=== PATIENT | male | born 1975 | race Caucasian/White ===

== ENCOUNTER 2018-01-16 07:49 | Day surgery (SDC) | payer BC, MEDICAID ==
[~2018-01-16 07:49] MED LIST: Bupivacaine 0.25% 30 ML SDV ONE; Lactated Ringers 1,000 ML IV SCH; Lidocaine 1%/Sod Bicarbonate in NS 8.4% 1 ML Syringe IDERM PRN; Sodium Chloride 0.9% 10 ML Syringe FLUSH PRN; Triamcinolone Acetonide 40 MG/ML 1 ML MDV ONE
[2018-01-16] MEDS ORDERED: Lidocaine 1% 30 ML SDV ONE (08:31)
--- NOTE | 2018-01-16 08:46 | PCM.PREANE ---
Preanesthetic Assessment - Anesthesia/Transfusion/Family Hx Anesthesia History: Prior Anesthesia Without Reaction Family History of Anesthesia Reaction: No - Review of Systems General: No Symptoms Pulmonary: No Symptoms Cardiovascular: No Symptoms Gastrointestinal: No Symptoms Neurological: No Symptoms Other: Reports: Neck Pain (Not a constant pain. Comes and goes. ) - Physical Assessment NPO Status Date: 01/15/18 NPO Status Time: 18:30 O2 Sat by Pulse Oximetry: 99 Respiratory Rate: 16 Vital Signs: Last Vital Signs Temp 36.6 C 01/16/18 07:55 Pulse 65 01/16/18 07:55 Resp 16 01/16/18 07:55 BP 147/101 H 01/16/18 07:55 Pulse Ox 99 01/16/18 07:55 Height: 1.78 m Weight: 92.079 kg ASA Class: 2 Mental Status: Alert & Oriented x3 Airway Class: Mallampati = 1 Dentition: Reports: Normal Dentition Thyro-Mental Finger Breadths: 3 Mouth Opening Finger Breadths: 3 ROM/Head Extension: Full Lungs: Clear to Auscultation, Normal Respiratory Effort Cardiovascular: Regular Rate, Regular Rhythm - Lab Values: Laboratory Last Values MRSA (PCR) Negative 12/31/17 12:10 - Allergies Allergies/Adverse Reactions: Allergies Allergy/AdvReac Type Severity Reaction Status Date / Time No Known Allergies Allergy Verified 01/15/18 15:50 - Acknowledgements Anesthesia Type Planned: MAC Pt an Appropriate Candidate for the Planned Anesthesia: Yes Alternatives and Risks of Anesthesia Discussed w Pt/Guardian: Yes Pt/Guardian Understands and Agrees with Anesthesia Plan: Yes PreAnesthesia Questionnaire HEENT History: Reports: Other (See Below) Other HEENT History: strep pharyngitis, tonsillitis, uvulitis Cardiovascular History: Reports: High Cholesterol, Hypertension Respiratory History: Reports: None Gastrointestinal History: Reports: None Genitourinary History: Reports: Other (See Below) Other Genitourinary History: hematuria 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 Musculoskeletal History: Reports: Other (See Below) Other Musculoskeletal History: bilateral carpal tunnel syndrome, hand numbness, lateral epicondylitis, left hip pain, neck pain,golfer's elbow Neurological History: Reports: Other (See Below) Other Neuro History: cervical paraspinal muscle spasm Psychiatric History: Reports: None Endocrine/Metabolic History: Reports: None Hematologic History: Reports: None Immunologic History: Reports: None Oncologic (Cancer) History: Reports: None Dermatologic History: Reports: None - Past Surgical History Cardiovascular Surgical History: Reports: None Respiratory Surgical History: Reports: None GI Surgical History: Reports: Appendectomy Female Surgical History: Reports: None Male Surgical History: Reports: None Endocrine Surgical History: Reports: None Neurological Surgical History: Reports: None Musculoskeletal Surgical History: Reports: Other (See Below) Other Musculoskeletal Surgeries/Procedures:: foot surgery, right wrist surgery Oncologic Surgical History: Reports: None Dermatological Surgical History: Reports: None - SUBSTANCE USE Smoking Status *Q: Current Every Day Smoker Tobacco Use Within Last Twelve Months: Cigarettes, Snuff/Dip Recreational Drug Use History: No - HOME MEDS Home Medications: Home Meds Fish Oil/Innis-3 Fatty Acids [Fish Oil 1,000 MG] 1 gm PO DAILY 01/15/18 [History ] Multivitamin [Poly-Vitamin] 1 tab PO DAILY 01/15/18 [History] Omeprazole 20 mg PO DAILY 01/15/18 [History] Acetaminophen/HYDROcodone [[place] 325-5 MG] 1 - 2 tab PO Q6H PRN #40 tablet 01/16 [Rx] - CURRENT (IN HOUSE) MEDS Current Meds: Current Medications Lactated Ringer's (Ringers, Lactated) 1,000 mls @ 125 mls/hr IV ASDIRECTED REG Stop: 01/16/18 23:00 Last Admin: 01/16/18 08:05 Dose: 125 mls/hr Lidocaine/Sodium Bicarbonate (Buffered Lidocaine 1% In Ns 8.4%) 0.25 ml IDERM ONETIME PRN PRN Reason: Prior to IV Start Stop: 01/16/18 18:00 Last Admin: 01/16/18 08:05 Dose: 0.25 ml Sodium Chloride (Saline Flush) 10 ml FLUSH ASDIRECTED PRN PRN Reason: Keep Vein Open Stop: 01/16/18 18:00 Discontinued Medications Bupivacaine HCl (Marcaine 0.25%) Confirm Administered Dose 30 ml .ROUTE .STK- MED ONE Stop: 01/16/18 07:49 Triamcinolone Acetonide (Kenalog-40) Confirm Administered Dose 80 mg .ROUTE .STK -MED ONE Stop: 01/16/18 07:49
[2018-01-16] MEDS ORDERED: Ketamine 500 mg/10 ML MDV ONE (09:10)
[2018-01-16] MEDS ORDERED: Lidocaine 1% 4 ML ONE (09:10)
[2018-01-16] MEDS ORDERED: fentaNYL 100 MCG/2 ML SDV ONE (09:10)
[2018-01-16] MEDS ORDERED: Propofol 200 MG/20 ML SDV ONE ×2 (09:10→10:21)
[2018-01-16] MEDS ORDERED: Midazolam 1 MG/ML 2 ML SDV ONE (09:10)
[2018-01-16] MEDS ORDERED: HYDROmorphone 1 MG/ML Syringe ONE (10:13)
[2018-01-16] MEDS ORDERED: Lactated Ringers 1,000 ML ONE (10:21)
[2018-01-16] MEDS ORDERED: diphenhydrAMINE 50 MG/ML SDV ONE (10:23)
[2018-01-16] MEDS ORDERED: Dexamethasone 4 MG/ML 5 ML MDV ONE (10:23)
[2018-01-16] MEDS ORDERED: Ketorolac 30 MG/ML SDV ONE (10:44)
--- NOTE | 2018-01-16 12:16 | PCM48HPAN ---
Post Anesthesia Note - EVALUATION WITHIN 48HRS OF ANESTHETIC Vital Signs in Normal Range: Yes Patient Participated in Evaluation: Yes Respiratory Function Stable: Yes Airway Patent: Yes Cardiovascular Function Stable: Yes Hydration Status Stable: Yes Pain Control Satisfactory: Yes Nausea and Vomiting Control Satisfactory: Yes Mental Status Recovered: Yes Pulse Rate: 67 SaO2: 98 Resp Rate: 14 Temperature: 97.5 C Blood Pressure: 154/107 Pulse Rate: 67
--- NOTE | 2018-01-23 09:25 | PCM.OPNOTE ---
- General Post-Op/Procedure Note Date of Surgery/Procedure: 01/16/18 Operative Procedure(s): bilateral carpal tunnel release with bilateral lateral epicondylar injections Pre Op Diagnosis: bilateral median nerve compression neuropathy and bilateral elbow lateral epicondylitis Post-Op Diagnosis: Same Anesthesia Technique: Local, MAC Primary Surgeon: Valdemar Adrian Anesthesia Provider: Anabell Cowan Supervisor [place] Department: Dana Hall EBL in mLs: 5 Complications: None Condition: Good
--- NOTE | 2018-01-23 10:50 | OR ---
DATE OF OPERATION: 01/16/2018 SURGEON: Valdemar Adrian MD OPERATION PERFORMED: Bilateral carpal tunnel release with bilateral lateral epicondylar elbow injections. PREOPERATIVE DIAGNOSIS: 1. Bilateral median nerve compression neuropathy. 2. Bilateral elbow lateral epicondylitis. POSTOPERATIVE DIAGNOSIS: 1. Bilateral median nerve compression neuropathy. 2. Bilateral elbow lateral epicondylitis. ANESTHESIA: Local MAC ANESTHESIA PROVIDER: Amaris Shahid. 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 ESTIMATED BLOOD LOSS: Less than 5 mL. COMPLICATIONS: None. CONDITION: Stable. DESCRIPTION OF PROCEDURE: The patient was identified in the preoperative holding area. Proper site was marked and identified by the surgeon. The patient was taken back to the operating theater, where after adequate anesthesia, the patient's bilateral upper extremities were sterilely prepped and draped in the usual sterile fashion. OR time-out was performed. The patient did not receive antibiotics as it is not indicated for soft tissue hand procedure. At this time, starting with the left upper extremity, we used an Esmarch as a tourniquet on the forearm, and 1% lidocaine and 0.25% Marcaine was used to anesthetize the palmar cutaneous branch of the median nerve proximally as well as the incisional site using [place] cardinal line and ulnar border of the fourth digit. Once this had time to set up, incision was made. Blunt dissection was taken down to the palmar cutaneous fascia and the palmar cutaneous fascia was then incised with a [place] blade. Transverse carpal ligament was identified. A small rent was made in the transverse carpal ligament and [place] blade was used to release this all the way distally after freer elevator was placed deep to the transverse carpal ligament, and this found to be adequate release distally. The patient did have significant scar tissue noted throughout the palm. At this time, attention was turned proximally with the use of a tenotomy scissors. The superficial forearm fascia as well as transverse carpal ligament were released all the way up into the forearm making sure to keep the tips ulnar to protect the palmar cutaneous branch of the median nerve. It was found to be adequate release both proximally and distally. At this time, adequate saline was irrigated through the wound. A 4-0 nylon simple suture was used for closure of the skin. Attention was turned to the right upper extremity. Again, an Esmarch was used as a tourniquet on the forearm. The skin was anesthetized using 1% lidocaine without epinephrine and 0.25% Marcaine without epinephrine. Again, the usual anatomic landmarks were used. Incision was then made. Blunt dissection was taken down to palmar cutaneous fascia. Palmar cutaneous fascia was then incised with a [place] blade. A [place] elevator was placed deep to this and again it was released in the same fashion, and was again found to be significantly fibrotic and scarred in his palm, which was found to be adequate release distally. At this time, attention was turned proximally and it was again released in the same fashion as the contralateral side. It was found to be adequately release both proximally and distally. At this time, adequate saline was irrigated through the wound on the right side and 4-0 nylon simple suture was used for closure of the skin. At this time, under sterile technique, 1 mL of 40 mg Kenalog and 2 mL of 0.25% Marcaine were injected to the lateral epicondylar region in the bilateral elbows as well. The patient had sterile soft dressings applied to both wrist and was sent to PACU in stable condition. BRENDEN /[id number]
== END 2018-01-16 11:27 | disposition home or self-care (01) ==
LOC: JD.SDS 07:49
PROVIDERS: ATTEND Orthopaedic Surgery
DX: M77.12 Lateral epicondylitis, left elbow (principal); M77.11 Lateral epicondylitis, right elbow; G56.13 Other lesions of median nerve, bilateral upper limbs; I10 Essential (primary) hypertension; Z79.899 Other long term (current) drug therapy; F17.210 Nicotine dependence, cigarettes, uncomplicated
CPT/HCPCS: 20551; 64721; 87641; J1100; J1170; J1200; J1885; J2250; J3010; J3301; J3490; J7120; 01810; J2704

== ENCOUNTER 2021-05-09 06:53 | Day surgery (SDC) | payer BC ==
[~2021-05-09 06:53] MED LIST changes: -Bupivacaine 0.25% 30 ML SDV ONE; +Lidocaine 1% 4 ML ONE; +Propofol 200 MG/20 ML SDV ONE; -Triamcinolone Acetonide 40 MG/ML 1 ML MDV ONE
[2021-05-09] MEDS ORDERED: Propofol 200 MG/20 ML SDV ONE ×4 (06:54→08:42)
[2021-05-09] MEDS ORDERED: fentaNYL 100 MCG/2 ML SDV ONE (06:54)
--- NOTE | 2021-05-09 07:21 | PCM.PREANE ---
Preanesthetic Assessment - Anesthesia/Transfusion/Family Hx Anesthesia History: Prior Anesthesia Without Reaction Family History of Anesthesia Reaction: No Transfusion History: No Prior Transfusion(s) Intubation History: Unknown - Review of Systems General: No Symptoms Cardiovascular: No Symptoms Gastrointestinal: No Symptoms Neurological: No Symptoms Other: Reports: None - Physical Assessment NPO Status Date: 05/09/21 NPO Status Time: 04:30 ASA Class: 2 Mental Status: Alert & Oriented x3 Airway Class: Mallampati = 2 Dentition: Reports: Normal Dentition Thyro-Mental Finger Breadths: 3 Mouth Opening Finger Breadths: 3 ROM/Head Extension: Full Lungs: Normal Respiratory Effort, Wheezing ((B)bases insp wheezing, will order breathing treatment) Cardiovascular: Regular Rate, Regular Rhythm - Allergies Allergies/Adverse Reactions: Allergies Allergy/AdvReac Type Severity Reaction Status Date / Time No Known Allergies Allergy Verified 05/08/21 10:32 - Acknowledgements Anesthesia Type Planned: MAC Pt an Appropriate Candidate for the Planned Anesthesia: Yes Alternatives and Risks of Anesthesia Discussed w Pt/Guardian: Yes Pt/Guardian Understands and Agrees with Anesthesia Plan: Yes PreAnesthesia Questionnaire HEENT History: Reports: Impaired Vision, Other (See Below) Other HEENT History: strep pharyngitis, tonsillitis, uvulitis, wears glasses Cardiovascular History: Reports: High Cholesterol, Hypertension, Other (See Below) Other Cardiovascular History: chest pain Respiratory History: Reports: None Gastrointestinal History: Reports: GERD, Other (See Below) Other Gastrointestinal History: left inguinal pain, heartburn, hematochezia, melena, stomach pain Genitourinary History: Reports: Other (See Below) Other Genitourinary History: hematuria 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 Musculoskeletal History: Reports: Back Pain, Chronic, Other (See Below) Other Musculoskeletal History: bilateral carpal tunnel syndrome, hand numbness, lateral epicondylitis, left hip pain, neck pain,golfer's elbow Neurological History: Reports: Other (See Below) Other Neuro History: cervical paraspinal muscle spasm Psychiatric History: Reports: None Endocrine/Metabolic History: Reports: None Hematologic History: Reports: None Immunologic History: Reports: None Oncologic (Cancer) History: Reports: None Dermatologic History: Reports: None - Infectious Disease History Infectious Disease History: Reports: None - Past Surgical History Head Surgeries/Procedures: Reports: None HEENT Surgical History: Reports: Oral Surgery Cardiovascular Surgical History: Reports: None Respiratory Surgical History: Reports: None GI Surgical History: Reports: Appendectomy Female Surgical History: Reports: None Male Surgical History: Reports: None Endocrine Surgical History: Reports: None Neurological Surgical History: Reports: None Musculoskeletal Surgical History: Reports: Other (See Below) ((B) carpal tunnel) Other Musculoskeletal Surgeries/Procedures:: foot surgery, right wrist surgery Oncologic Surgical History: Reports: None Dermatological Surgical History: Reports: None - SUBSTANCE USE Tobacco Use Status *Q: Current Every Day Tobacco User Days Per Week of Alcohol Use: 7 Number of Drinks Per Day: 2 Total Drinks Per Week: 14 Recreational Drug Use History: No - HOME MEDS Home Medications: Home Meds Esomeprazole [NexIUM] 40 mg PO DAILY 05/08/21 [History] Fish Oil/[place]-3 Fatty Acids [Fish Oil 1,000 MG] 1 gm PO DAILY 05/08/21 [History] Ibuprofen [Advil] 600 mg PO Q6H PRN 05/08/21 [History] Multivitamin 1 tab PO DAILY 05/08/21 [History] Ubidecarenone [Coq-10] 100 mg PO DAILY 05/08/21 [History] atorvaSTATin Calcium [Atorvastatin Calcium] 80 mg PO DAILY 05/08/21 [History] - CURRENT (IN HOUSE) MEDS Current Meds: Current Medications Lactated Ringer's (Ringers, Lactated) 1,000 mls @ 125 mls/hr IV ASDIRECTED REG Stop: 05/09/21 23:00 Lidocaine/Sodium Bicarbonate (Lidocaine 1%/Sod Bicarbonate In Ns 8.4% 1 Ml Syringe) 0.25 ml IDERM ONETIME PRN PRN Reason: Prior to IV Start Stop: 05/09/21 18:00 Sodium Chloride (Sodium Chloride 0.9% 10 Ml Syringe) 10 ml FLUSH ASDIRECTED PRN PRN Reason: Keep Vein Open Stop: 05/09/21 18:00 Discontinued Medications Fentanyl (Fentanyl 100 Mcg/2 Ml Sdv) Confirm Administered Dose 100 mcg .ROUTE .STK-MED ONE Stop: 05/09/21 06:55 Lidocaine HCl (Xylocaine-Mpf 1%) Confirm Administered Dose 4 mls @ as directed .ROUTE .STK-MED ONE Stop: 05/09/21 06:54 Propofol (Propofol 200 Mg/20 Ml Sdv) Confirm Administered Dose 200 mg .ROUTE .STK-MED ONE Stop: 05/09/21 06:54 Propofol (Propofol 200 Mg/20 Ml Sdv) Confirm Administered Dose 200 mg .ROUTE .STK-MED ONE Stop: 05/09/21 06:55
[2021-05-09] MEDS ORDERED: Albuterol 0.083% 2.5 MG/3 ML Neb Soln NEB ONE (07:26)
[2021-05-09] MEDS ORDERED: Albuterol 0.083% 2.5 MG/3 ML Neb Soln ONE (07:31)
[2021-05-09] MEDS ORDERED: Lidocaine 1% 2 ML ONE (07:35)
[2021-05-09] MEDS ORDERED: Midazolam 1 MG/ML 2 ML SDV ONE (07:36)
--- NOTE | 2021-05-09 08:56 | PCM.PRNOTE ---
- Free Text/Narrative Note: Date: 05/09/2021 Procedure: diagnostic esophagogastroduodenoscopy and colonoscopy Indication: chronic abdominal pain, diarrhea, painless rectal bleeding with history of GERD Endoscopist: Phil Dawson MD Findings: Normal upper endoscopy. Colon prep was good, though there were lots of bubbles. Cecum reached. One small polyp at hepatic flexure, questionable polyp in rectum. Minor internal hemorrhoids. Detailed Report: The patient was taken to the endoscopy suite and placed in left lateral decubitus position. Timeout was performed and monitored anesthesia care was initiated. A bite-block was placed. The scope was inserted into the mouth and advanced to the second portion of the duodenum with ease. Duodenal mucosa appeared normal, and contained [place] yellow bile. The scope was withdrawn into the duodenal bulb and a few sample biopsies of the mucosa were obtained with cold forceps. The scope was withdrawn into the stomach. The antrum appeared normal. Sample biopsies of the antrum were obtained with cold forceps. There was no evidence of ulceration or inflammation within the stomach. On retr oflexion, no hiatal hernia was appreciated. The scope was withdrawn into the distal esophagus. The Z-line appeared relatively normal. There was no evidence of esophageal inflammation. Biopsies were obtained at the gastroesophageal junction and that the distal esophagus with cold forceps. Air was suctioned from the stomach prior to withdrawal of the scope. Next, attention was turned to colonoscopy. On visual inspection, the anus appeared normal. Digital rectal exam was unremarkable. The colonoscope was inserted and advanced all the way to the cecum with ease. The appendiceal orifice was visualized. The ileocecal valve was visualized, and an attempt to intubate the terminal ileum was unsuccessful. The scope was slowly withdrawn and mucosal surfaces carefully inspected. The prep was good, although there was a fair amount of bubbles adhering to the mucosal surface throughout the length of the colon. Irrigation was used to aid with visualization. A subcentimeter sessile polyp was identified at about the level of the hepatic flexure. This was removed entirely with cold forceps. No other pathology was noted as the scope was withdrawn to the rectum. A small well-circumscribed raised lesion that appeared almost submucosal was noted within the distal rectum. Although this did not appear to like a typical polyp or any worrisome lesion, a biopsy was obtained with cold fo rceps. The scope was retroflexed within the rectum, and internal hemorrhoidal disease was noted. Air was suctioned from the distal colon and rectum prior to withdrawal of the scope. The patient tolerated the procedure well.
--- NOTE | 2021-05-09 09:07 | PCM48HPAN ---
Post Anesthesia Note - EVALUATION WITHIN 48HRS OF ANESTHETIC Vital Signs in Normal Range: Yes Patient Participated in Evaluation: Yes Respiratory Function Stable: Yes Airway Patent: Yes Cardiovascular Function Stable: Yes Hydration Status Stable: Yes Pain Control Satisfactory: Yes Nausea and Vomiting Control Satisfactory: Yes Mental Status Recovered: Yes Vital Signs: Last Vital Signs Temp 97.4 F 05/09/21 07:10 Pulse 78 05/09/21 07:10 Resp 16 05/09/21 07:10 BP 165/85 H 05/09/21 07:10 Pulse Ox 99 05/09/21 07:34 Vital signs at 0859: 140/86 HR 85 RR 15 93% RA 98.3
== END 2021-05-09 09:37 | disposition home or self-care (01) ==
LOC: JD.SDS 06:53
PROVIDERS: ATTEND Surgery
DX: D12.3 Benign neoplasm of transverse colon (principal); K20.90 Esophagitis, unspecified without bleeding; K22.8 Other specified diseases of esophagus; K62.89 Other specified diseases of anus and rectum; E78.5 Hyperlipidemia, unspecified; F17.210 Nicotine dependence, cigarettes, uncomplicated; K64.8 Other hemorrhoids
CPT/HCPCS: 00813; 94640; J2250; J2704; J3010; J7120

== ENCOUNTER 2022-04-04 06:10 | Day surgery (SDC) | payer BC ==
[~2022-04-04 06:10] MED LIST changes: +Acetaminophen 325 MG Tab PO SCH; -Lidocaine 1% 4 ML ONE; +Pregabalin 25 MG Cap PO SCH; -Propofol 200 MG/20 ML SDV ONE; +Sodium Chloride 0.9% 10 ML Syringe FLUSH SCH; +oxyCODONE ER 10 MG TAB.ER PO SCH
[2022-04-04] MEDS ORDERED: Succinylcholine 200 MG/10 ML MDV ONE (06:12)
[2022-04-04] MEDS ORDERED: Lidocaine 1% 5 ML VIAL ONE (06:12)
[2022-04-04] MEDS ORDERED: fentaNYL 100 MCG/2 ML SDV ONE ×2 (06:12→07:47)
[2022-04-04] MEDS ORDERED: Propofol 200 MG/20 ML SDV ONE (06:12)
[2022-04-04] MEDS ORDERED: Midazolam 1 MG/ML 2 ML SDV ONE (06:13)
[2022-04-04] MEDS ORDERED: Ropivacaine 0.5% 5 MG/ML 30 ML SDV ONE (06:27)
[2022-04-04] MEDS ORDERED: Bupivacaine 0.25% 10 ML SDV ONE (06:43)
[2022-04-04] MEDS ORDERED: Triamcinolone Acetonide 40 MG/ML 1 ML SDV ONE ×2 (06:43→06:44)
[2022-04-04] MEDS ORDERED: Vancomycin 1 GM SDV ONE (06:49)
[2022-04-04] MEDS ORDERED: Ondansetron 4 MG/2 ML SDV ONE (08:03)
[2022-04-04] MEDS ORDERED: ceFAZolin 1 GM Vial ONE (08:05)
[2022-04-04] MEDS ORDERED: HYDROmorphone 0.5 MG/0.5 ML Syringe IVPUSH PRN (08:29)
[2022-04-04] MEDS ORDERED: fentaNYL 100 MCG/2 ML SDV IVPUSH PRN (08:29)
[2022-04-04] MEDS ORDERED: Ondansetron 4 MG/2 ML SDV IVPUSH PRN (08:29)
== END 2022-04-04 11:56 | disposition home or self-care (01) ==
LOC: JD.SDS 06:10
PROVIDERS: ATTEND Orthopaedic Surgery
DX: M19.012 Primary osteoarthritis, left shoulder (principal); M19.011 Primary osteoarthritis, right shoulder; I10 Essential (primary) hypertension; E78.5 Hyperlipidemia, unspecified; E78.00 Pure hypercholesterolemia, unspecified; K21.9 Gastro-esophageal reflux disease without esophagitis; Z87.891 Personal history of nicotine dependence; Z79.899 Other long term (current) drug therapy; Z90.49 Acquired absence of other specified parts of digestive tract; Z98.890 Other specified postprocedural states
CPT/HCPCS: 20610; 23472; 73020; 76000; 97161; A9270; C1713; C1769; C1776; J0330; J0690; J2250; J2405; J2704; J2795; J3010; J3301; J3370; J3490; J7120; 01638; 64415; 76942

== ENCOUNTER 2023-01-10 10:30 | Day surgery (SDC) | payer BC ==
[~2023-01-10 10:30] MED LIST changes: -Acetaminophen 325 MG Tab PO SCH; +EPINEPHrine 1 MG/ML 30 ML MDV IRR SCH; +EPINEPHrine 1 MG/ML SDV ONE; -Pregabalin 25 MG Cap PO SCH; +Ropivacaine 0.5% 5 MG/ML 30 ML SDV ONE; -oxyCODONE ER 10 MG TAB.ER PO SCH
[2023-01-10] MEDS ORDERED: Albuterol 0.083% 2.5 MG/3 ML Neb Soln NEB SCH (11:16)
[2023-01-10] MEDS ORDERED: fentaNYL 100 MCG/2 ML SDV ONE (11:31)
[2023-01-10] MEDS ORDERED: Propofol 200 MG/20 ML SDV ONE ×2 (11:31→14:11)
[2023-01-10] MEDS ORDERED: Dexamethasone 4 MG/ML 5 ML MDV ONE (11:32)
[2023-01-10] MEDS ORDERED: Lidocaine 1% 5 ML VIAL ONE (11:32)
[2023-01-10] MEDS ORDERED: Midazolam 1 MG/ML 2 ML SDV ONE (11:32)
[2023-01-10] MEDS ORDERED: Ondansetron 4 MG/2 ML SDV ONE (11:32)
[2023-01-10] MEDS ORDERED: Rocuronium 50 MG/5 ML Vial ONE (11:35)
[2023-01-10] MEDS ORDERED: ceFAZolin 2 GM Vial ONE (13:11)
[2023-01-10] MEDS ORDERED: Lactated Ringers 1,000 ML ONE ×2 (13:33→13:57)
[2023-01-10] MEDS ORDERED: Sugammadex Sodium 200 MG/2 ML VIAL ONE (13:33)
[2023-01-10] MEDS ORDERED: HYDROmorphone 0.5 MG/0.5 ML Syringe IVPUSH PRN (14:52)
[2023-01-10] MEDS ORDERED: Ondansetron 4 MG/2 ML SDV IVPUSH PRN (14:52)
[2023-01-10] MEDS ORDERED: fentaNYL 100 MCG/2 ML SDV IVPUSH PRN (14:52)
== END 2023-01-10 16:10 | disposition home or self-care (01) ==
LOC: JD.SDS 10:30
PROVIDERS: ATTEND Orthopaedic Surgery
DX: M75.111 Incomplete rotator cuff tear or rupture of right shoulder, not specified as traumatic (principal); M65.811 Other synovitis and tenosynovitis, right shoulder; M75.41 Impingement syndrome of right shoulder; M75.21 Bicipital tendinitis, right shoulder; I10 Essential (primary) hypertension; E78.00 Pure hypercholesterolemia, unspecified; K21.9 Gastro-esophageal reflux disease without esophagitis; F17.210 Nicotine dependence, cigarettes, uncomplicated; Z79.899 Other long term (current) drug therapy
CPT/HCPCS: 29826; 29827; 64415; C1713; J0171; J0690; J1100; J2250; J2405; J2704; J2795; J3010; J7120; 01630; J3490; J7620-GY